=== PATIENT | female | born 1995 | race Caucasian/White ===

== ENCOUNTER → 2017-07-21 | Day surgery (SDC) | payer MEDICAID ==
[~2017-07-21] MED LIST: Lactated Ringer's 500 ML IV ONE; Lidocaine PF 2% (5 ml) Inj (For Cardiac Arrhy) IV ONE; Midazolam 2 MG/2 ML VIAL ONE; Propofol 10 mg/ml Inj (20 ML) ONE
[2017-07-21 08:45] VITALS: TEMP 98.6
[2017-07-21 10:03] VITALS: O2SAT 100
[2017-07-21 10:13] VITALS: BP 112/67; PULSE 75; RESP 18
== END | disposition home or self-care (01) ==
LOC: H.ENDO 08:15 → EDSTATUS 10:15
PROVIDERS: ATTEND Internal Medicine Gastroenterology
DX: Z12.11 Encounter for screening for malignant neoplasm of colon (principal); K30 Functional dyspepsia; J45.909 Unspecified asthma, uncomplicated; K52.9 Noninfective gastroenteritis and colitis, unspecified; K64.8 Other hemorrhoids; K31.9 Disease of stomach and duodenum, unspecified; K44.9 Diaphragmatic hernia without obstruction or gangrene
CPT/HCPCS: 43239; 45380; 88305; J2250; J2704; J7120